=== PATIENT | male | born 1950 | race Caucasian/White ===

== ENCOUNTER 2016-10-01 06:44 | Day surgery (SDC) | payer OTHER ==
--- NOTE | 2016-09-12 08:31 | HP ---
PREOPERATIVE HISTORY AND PHYSICAL: DATE OF SURGERY/ADMISSION: 10/01/16 PROCEDURE: Right thumb carpometacarpal joint arthroplasty. PRIMARY CARE PHYSICIAN: Pinky Ernandez NP. ATTENDING PHYSICIAN: Dr. Harris (DICTATED BY MICHELLE CINTRON) CHIEF COMPLAINT: Right thumb pain. HISTORY OF PRESENT ILLNESS: This is a 66-year-old male who complains of base of right thumb pain, ongoing for the past 4 years, but worsening over the past couple of months. He denies any recent injury. He reports the onset was gradual, but has progressively worsened. He gets increased pain when he is using his thumb and has not really been able to find much of a relief of discomfort to this point. He is right hand dominant. He did try a course of conservative treatment including thumb spica brace and Mobic; however, neither of these were very helpful in relieving his discomfort. X-rays have showed degenerative changes at the first CMC joint. At this point, the patient is interested in pursuing surgical intervention for this problem and has consented to proceed with a right thumb CMC joint arthroplasty. We will obtain medical clearance from his primary care physician, Pinky Ernandez, prior to proceeding with surgery secondary to an elevated blood pressure reading. PAST MEDICAL HISTORY: Hypertension. PAST SURGICAL HISTORY: Tonsillectomy. MEDICATIONS: Meloxicam 7.5 mg daily. ALLERGIES: No known drug allergies. FAMILY HISTORY: Brain cancer. SOCIAL HISTORY: The patient is a retired set up machinist. He admits to chewing tobacco. He does not smoke. He denies recreational drug use. He admits to alcohol use on regular occasion, approximately 3 times a week. REVIEW OF SYSTEMS: General: Negative for fevers, chills, or night sweats. No known anesthesia problems. HEENT: Negative for headache, lightheadedness, or syncopal episodes. Integumentary: Negative for abrasions, lesions, or open wounds. Cardiothoracic: Positive for hypertension. Negative for chest pain, palpitations, or edema. Pulmonary: Negative for shortness of breath with exertion, chronic cough, COPD. GI: Negative for nausea, vomiting, diarrhea, constipation, or GERD. : Negative for nocturia, urinary frequency, urgency, history of UTIs, or kidney problems. Musculoskeletal: Positive for current complaint. Negative for chronic or intermittent back pain or history of fractures. Neurological: Negative for paresthesias, numbness, history of seizure, stroke, or epilepsy. Endocrine: Negative for diabetes or thyroid issues. Hematologic: Negative for easy bruising, anemia, excessive bleeding, or history of DVT. Infectious Disease: Negative for history of MRSA, hepatitis C, or HIV. PHYSICAL EXAMINATION GENERAL: Well-developed, well-nourished 66-year-old male, in no acute distress. VITAL SIGNS: Height 5 feet 7 inches, weight 192 pounds. Pulse rate 85, blood pressure 140/98. HEENT: Normocephalic, atraumatic. Pupils are equal, round, and reactive to light and accommodation. Extraocular movements are intact. NECK: Supple. No palpable lymph nodes. Throat is clear. PULMONARY: Lungs are clear to auscultation bilaterally. No wheezes, rales, or rhonchi. CARDIOVASCULAR: Regular rate and rhythm. S1, S2. No murmurs, rubs, or gallops. No edema. ABDOMEN: Positive bowel sounds, soft, nontender. NEUROLOGIC: Alert and oriented x3. Cranial nerves II through XII are intact. Sensation is intact to light touch. MUSCULOSKELETAL: On exam of his right thumb, the patient has no swelling or ecchymosis. He does have tenderness to palpation at the first carpometacarpal joint bilaterally, but right is worse than left. He has good motion in his thumb with no particular exacerbation of his symptoms, but he does have a positive grind test on the right. He has good strength in his thumb in all directions. Neurovascular function is intact. IMAGING STUDIES: X-rays taken of the right thumb AP, lateral, and oblique show moderate to significant degenerative changes at the first CMC joint with joint space narrowing, loss of joint space, and small osteophytes visible. ASSESSMENT: Right thumb CMC joint osteoarthritis. PLAN: The patient is scheduled to undergo a right thumb CMC joint arthroplasty with Dr. Harris on 10/01/16. He will return to the office in 14 days postop for followup and suture removal. A prescription for [place] was e-scribed to the patient's pharmacy for postoperative pain management. We will plan on getting clearance from his primary care's office and Pinky Ernandez prior to proceeding with surgery. MICHELLE CINTRON [id number]/[facility] #: [id number] JIMMY
[~2016-10-01 06:44] MED LIST: Buffered Lidocaine 0.9% SYRIN* 5 ML/SYR SYRINGE INTRADERM ONE
[2016-10-01] MEDS ORDERED: ceFAZolin 2 GM PREMIX(*) 2 GM/50 ML BAG IVPB ONE (06:53)
[2016-10-01] MEDS ORDERED: Buffered Lidocaine 0.9% SYRIN* 5 ML/SYR SYRINGE ONE (07:08)
[2016-10-01] MEDS ORDERED: Midazolam* 1 MG/ML 5 ML VIAL (5 MG) ONE (07:36)
[2016-10-01] MEDS ORDERED: Lidocaine 0.5%* 50 ML SDV ONE (07:36)
[2016-10-01] MEDS ORDERED: fentaNYL* 50 MCG/ML 2 ML VIAL (100 MCG VIAL) ONE ×2 (07:57→08:26)
[2016-10-01] MEDS ORDERED: Bupivacaine 0.5% SDV PF* 30 ML VIAL ONE (08:01)
[2016-10-01] MEDS ORDERED: Midazolam* 1 MG/ML 2 ML VIAL (2 MG) ONE (08:15)
[2016-10-01] MEDS ORDERED: Ondansetron INJ* 2 MG/ML VIAL IV PRN (08:43)
[2016-10-01] MEDS ORDERED: HYDROcodone/ACETAMIN 5-325 MG* 1 TAB PO PRN (08:43)
[2016-10-01] MEDS ORDERED: oxyCODONE TAB* 5 MG TAB PO PRN (08:43)
[2016-10-01] MEDS ORDERED: fentaNYL* 50 MCG/ML 2 ML VIAL (100 MCG VIAL) IV PRN (08:43)
[2016-10-01 08:51] VITALS: BP 156/94
--- NOTE | 2016-10-02 03:12 | OP ---
DATE OF OPERATION: 10/01/16 LOCATED WITHIN [facility] DATE OF : 54 SURGEON: Chyna Harris MD WEB CONTENT PRODUCER: MICHELLE Guevara ANESTHESIOLOGIST: Junior Navarro MD ANESTHESIA: IV regional. PRE-OP DIAGNOSIS: Carpometacarpal arthritis of the right thumb. POST-OP DIAGNOSIS: Carpometacarpal arthritis of the right thumb. OPERATIVE PROCEDURE: Right thumb carpometacarpal arthroplasty. ESTIMATED BLOOD LOSS: Zero. TOURNIQUET TIME: About 35 minutes. INDICATION FOR PROCEDURE: Bulmaro is a 66-year-old man with severe degenerative arthritis of his right thumb CMC joint. He presents for CMC arthroplasty of the right thumb. DESCRIPTION OF PROCEDURE: The patient was brought to the operating room and was given a sedation anesthetic and an IV regional anesthetic with a tourniquet around his right upper arm. Skin of his right upper extremity was prepped and draped in the usual sterile fashion. An S-shaped incision was made centered over the thumb CMC joint. We dissected bluntly through the subcutaneous tissue. Branches of the radial sensory nerve were located and retracted by the neurosurgical physician assistant, Payton Smallwood. The CMC joint capsule was then incised and a distally based U-shaped flap was created at the capsule and subperiosteally dissected off the trapezium. The trapezium was then removed in its entirety with a combination of osteotome and rongeur. The wound was copiously irrigated with saline. The CMC joint capsule was secured to the FCR tendon, which helped to reestablish the abduction of the metacarpal and interposed some tissue between the metacarpal and scaphoid. The skin edges were then reapproximated with 4-0 nylon suture. The wound was dressed with Xeroform, 4x4, Webril, and a thumb spica splint. The patient tolerated the procedure well and was brought to the recovery room in good condition. [id number]/[facility] #: [id number] MTDD
== END 2016-10-01 09:16 | disposition home or self-care (01) ==
LOC: OREAST 06:44
PROVIDERS: ATTEND Orthopaedic Surgery
DX: M18.11 Unilateral primary osteoarthritis of first carpometacarpal joint, right hand (principal); I10 Essential (primary) hypertension; F17.220 Nicotine dependence, chewing tobacco, uncomplicated
CPT/HCPCS: J0690; J2250; J3010